=== PATIENT | male | born 1950 | race Caucasian/White ===

== ENCOUNTER 2022-09-07 06:58 | Inpatient (IN) | payer MEDICARE, MEDICAID ==
[~2022-09-07] VITALS: Ht 190.5 cm; Wt 97.5 kg
[2022-09-07] VITALS (36 sets, daily range): BP systolic 95–152; BP diastolic 46–123
[~2022-09-07 06:58] MED LIST: AMIO200T33; AMIODARONE PO; ASPI81CH43; CAR3125T OR; CARV6.25; CARV6.2551; DIGO0.1262; DIGO0.1262 OR; ENAL10TA13; ENALAPRIL PO; FURO1TAB31; FURO40TA4; HYDR-1421; HYDR-2035; PLAVIX; POTA8CAP6; POTA8TAB2 OR; SIMV-8; SIMV20TA2
[2022-09-07] MEDS ORDERED: NITROGLYCERIN 0.4 MG SL TAB SL PRN ×2 (07:30→07:45)
[2022-09-07] MEDS ORDERED: MORPHINE SULFATE INJ 2 MG/ml SYRG IV PRN ×3 (07:30→07:45)
[2022-09-07] MEDS ORDERED: LORazepam 0.5 MG TAB PO PRN (07:45)
[2022-09-07] MEDS ORDERED: ACETAMINOPHEN 325 MG TAB PO PRN (07:45)
[2022-09-07] MEDS ORDERED: HYDROcodone-ACET 5/325MG TAB PO PRN (07:45)
[2022-09-07] MEDS ORDERED: ONDANSETRON HCL 4 MG/2 ML VIAL IV PRN (07:45)
[2022-09-07] MEDS ORDERED: AMIODARONE 450mg/250ml AE 250 ML IV ONE (07:53)
[2022-09-07] MEDS ORDERED: ASPirin 325 MG TAB PO ONE (08:00)
[2022-09-07] MEDS ORDERED: AMIODARONE 450mg/250ml AE 250 ML IV SCH (08:00)
[2022-09-07] MEDS ORDERED: AMIODARONE HCL 150 MG in D5W 5% 100 ML IV ONE (08:00)
[2022-09-07] MEDS ORDERED: HEPARIN DRIP/D5W 100UNITS/ML 250 ML IV SCH (08:00)
[2022-09-07] MEDS ORDERED: HEPARIN DRIP/D5W 100UNITS/ML 250 ML IV ONE (08:43)
[2022-09-07 09:31] LABS: Albumin 3.6 g/dL (3.4-5.0); BUN/Creatinine Ratio 20.4; Magnesium 2.5 mg/dL (1.6-2.6); Potassium 3.8 mmol/L (3.5-5.1)
[2022-09-07 09:36] LABS: INR 1.02 (0.9-1.15); Partial Thromboplastin Time 26.2 sec (24.6-33.4)
[2022-09-07 09:38] LABS: Bilirubin, Total 0.8 mg/dL (0.2-1.0); Total Protein 6.9 g/dL (6.4-8.2)
[2022-09-07] MEDS ORDERED: TRELEGY ELLIPTA 100 MCG INH SCH (10:00)
[2022-09-07 11:01] LABS: Urine Bacteria NONE SEEN /hpf (None Seen); Urine Blood Negative /uL (Negative); Urine Hyaline Cast FEW /lpf (0 - 2); Urine Mucus FEW (None Seen); Urine Specific Gravity 1.027 (1.001-1.035); Urine WBC 28 /hpf (0 - 3)
[2022-09-07 11:16] LABS: Basophils # (auto) 0.1 10 ^3/uL (0-0.2); Basophils % (auto) 1.2 % (0.0-2.0); Eosinophils # (auto) 0 10 ^3/uL (0-0.8); Eosinophils % (auto) 0.2 % (0.0-7.0); Hematocrit 44.7 % (41.0-53.0); Hemoglobin 15.1 g/dL (13.5-17.5); Lymphocytes # (auto) 0.9 10 ^3/uL (0.4-5.4); Mean Corpuscular Hemoglobin 28.2 pg (28.0-32.0); Mean Corpuscular Hgb Conc. 33.8 g/dL (32.0-36.0); Mean Corpuscular Volume 83.5 fL (80.0-100.0); Monocytes # (auto) 0.4 10 ^3/uL (0-1.3); Monocytes % (auto) 5.7 % (0.0-12.0); Neutrophils # (auto) 6.3 10 ^3/uL (1.6-8.6); Neutrophils % (auto) 80.9 % (37.0-80.0); Nucleated Red Blood Cells % 0.1 %; Red Blood Cells 5.35 10^6/uL (4.5-5.90); Red Cell Distribution Width 15.6 % (11.8-14.3); White Blood Cell 7.7 10^3/uL (4.4-10.8)
[2022-09-07 11:27] LABS: Alcohol, Urine < 3.0 mg/dL (0-10); Amphetamine Screen, Urine NEGATIVE (NEGATIVE); Barbiturate Scree,Urine NEGATIVE (NEGATIVE); Benzodiazephine Screen, Urine NEGATIVE (NEGATIVE); Cannabinoid Screen, Urine NEGATIVE (NEGATIVE); Cocaine Screen, Urine NEGATIVE (NEGATIVE); Opiate Scree,Urine NEGATIVE (NEGATIVE); Phencyclidine Screen, Urine NEGATIVE (NEGATIVE)
[2022-09-07 11:27] LABS: Hematocrit 44.4 % (41.0-53.0); Mean Corpuscular Hemoglobin 28.3 pg (28.0-32.0); Mean Corpuscular Hgb Conc. 33.8 g/dL (32.0-36.0); Mean Corpuscular Volume 83.6 fL (80.0-100.0); Red Blood Cells 5.3 10^6/uL (4.5-5.90); Red Cell Distribution Width 15.9 % (11.8-14.3); White Blood Cell 7.5 10^3/uL (4.4-10.8)
[2022-09-07] MEDS: HEPARIN DRIP/D5W 100UNITS/ML 250 ML IV SCH (13:00)
[2022-09-07] MEDS: POTASSIUM CHL 20 Meq TABLET PO SCH (13:58)
[2022-09-07] MEDS: SODIUM CHLOR 0.9% PF (SALINE LOCK) 10ML VIAL/SYR IV SCH ×2 (14:07→21:07)
[2022-09-07] MEDS: AMIODARONE 450mg/250ml AE 250 ML IV SCH (14:30)
[2022-09-07] MEDS ORDERED: FUROSEMIDE 40 MG/4 ML VIAL IV SCH (18:00)
[2022-09-07] MEDS ORDERED: FUROSEMIDE 40 MG TAB PO ONE (18:00)
[2022-09-07] MEDS: ATORVASTATIN 20 MG TAB PO SCH (21:07)
[2022-09-08] VITALS (20 sets, daily range): BP systolic 112–143; BP diastolic 51–78
[2022-09-08] MEDS ORDERED: DOBUTamine 1000MCG/ML 250 ML IV ONE (00:03)
[2022-09-08] MEDS: SODIUM CHLOR 0.9% PF (SALINE LOCK) 10ML VIAL/SYR IV SCH ×3 (06:20→21:09)
[2022-09-08] MEDS: FUROSEMIDE 20 MG TAB PO SCH (06:21)
[2022-09-08] MEDS: AMIODARONE 450mg/250ml AE 250 ML IV SCH ×2 (06:21→21:09)
[2022-09-08 06:46] LABS: Basophils # (auto) 0 10 ^3/uL (0-0.2); Basophils % (auto) 0.7 % (0.0-2.0); Eosinophils # (auto) 0 10 ^3/uL (0-0.8); Eosinophils % (auto) 0.8 % (0.0-7.0); Hematocrit 43.1 % (41.0-53.0); Hemoglobin 14.6 g/dL (13.5-17.5); Lymphocytes # (auto) 1.3 10 ^3/uL (0.4-5.4); Mean Corpuscular Hemoglobin 28.8 pg (28.0-32.0); Mean Corpuscular Volume 84.9 fL (80.0-100.0); Monocytes # (auto) 0.5 10 ^3/uL (0-1.3); Neutrophils # (auto) 4.3 10 ^3/uL (1.6-8.6); Neutrophils % (auto) 69.5 % (37.0-80.0); Nucleated Red Blood Cells % 0.2 %; Red Blood Cells 5.08 10^6/uL (4.5-5.90); Red Cell Distribution Width 15.5 % (11.8-14.3); White Blood Cell 6.2 10^3/uL (4.4-10.8)
[2022-09-08 07:05] LABS: Potassium 3.3 mmol/L (3.5-5.1)
[2022-09-08 07:09] LABS: BUN/Creatinine Ratio 30.2; Calcium 6.2 mg/dL (8.5-10.1); Magnesium 1.9 mg/dL (1.6-2.6)
[2022-09-08] MEDS: TRELEGY ELLIPTA IN SCH (08:59)
[2022-09-08] MEDS: ASPirin 81 mg TAB PO SCH (11:01)
[2022-09-08] MEDS: POTASSIUM CHL 20 Meq TABLET PO SCH (11:02)
[2022-09-08] MEDS: HEPARIN DRIP/D5W 100UNITS/ML 250 ML IV SCH (13:15)
[2022-09-08] MEDS ORDERED: POTASSIUM CHL 20 Meq TABLET PO ONE (15:15)
[2022-09-08] MEDS ORDERED: MAGNESIUM OXIDE 400 MG TAB PO ONE (15:15)
[2022-09-08] MEDS: ATORVASTATIN 20 MG TAB PO SCH (21:09)
[2022-09-09] MEDS ORDERED: CALCIUM CARB 500 MG CHEW TAB PO PRN (02:15)
[2022-09-09 05:14] VITALS: BP 109/82
[2022-09-09] MEDS: SODIUM CHLOR 0.9% PF (SALINE LOCK) 10ML VIAL/SYR IV SCH ×3 (05:44→22:40)
[2022-09-09] MEDS: FUROSEMIDE 20 MG TAB PO SCH ×2 (05:44→20:03)
[2022-09-09 05:49] LABS: Calcium 8.8 mg/dL (8.5-10.1); Potassium 4.3 mmol/L (3.5-5.1)
[2022-09-09 05:53] LABS: BUN/Creatinine Ratio 25.3; Magnesium 2.6 mg/dL (1.6-2.6)
[2022-09-09 06:00] VITALS: BP 114/62
[2022-09-09] MEDS: TRELEGY ELLIPTA IN SCH (10:00)
[2022-09-09] MEDS: ASPirin 81 mg TAB PO SCH (10:16)
[2022-09-09] MEDS: POTASSIUM CHL 20 Meq TABLET PO SCH (10:17)
[2022-09-09] MEDS: AMIODARONE 450mg/250ml AE 250 ML IV SCH (13:00)
[2022-09-09] MEDS: HEPARIN DRIP/D5W 100UNITS/ML 250 ML IV SCH (13:15)
[2022-09-09 22:09] VITALS: BP 110/64
[2022-09-09] MEDS: ATORVASTATIN 20 MG TAB PO SCH (22:38)
[2022-09-10] MEDS: AMIODARONE 450mg/250ml AE 250 ML IV SCH ×2 (02:00→06:29)
[2022-09-10 05:30] VITALS: BP 142/70
[2022-09-10] MEDS: SODIUM CHLOR 0.9% PF (SALINE LOCK) 10ML VIAL/SYR IV SCH ×3 (06:25→21:23)
[2022-09-10] MEDS: FUROSEMIDE 20 MG TAB PO SCH (06:25)
[2022-09-10 09:01] LABS: Basophils # (auto) 0.1 10 ^3/uL (0-0.2); Basophils % (auto) 1.2 % (0.0-2.0); Eosinophils # (auto) 0.1 10 ^3/uL (0-0.8); Eosinophils % (auto) 1.1 % (0.0-7.0); Hematocrit 44.6 % (41.0-53.0); Hemoglobin 14.9 g/dL (13.5-17.5); Lymphocytes # (auto) 1.1 10 ^3/uL (0.4-5.4); Lymphocytes % (auto) 18.3 % (10.0-50.0); Mean Corpuscular Hemoglobin 28.3 pg (28.0-32.0); Mean Corpuscular Hgb Conc. 33.5 g/dL (32.0-36.0); Mean Corpuscular Volume 84.6 fL (80.0-100.0); Monocytes # (auto) 0.5 10 ^3/uL (0-1.3); Monocytes % (auto) 7.5 % (0.0-12.0); Neutrophils # (auto) 4.4 10 ^3/uL (1.6-8.6); Neutrophils % (auto) 71.9 % (37.0-80.0); Nucleated Red Blood Cells % 0.2 %; Red Blood Cells 5.27 10^6/uL (4.5-5.90); Red Cell Distribution Width 15.4 % (11.8-14.3); White Blood Cell 6.1 10^3/uL (4.4-10.8)
[2022-09-10 09:32] LABS: BUN/Creatinine Ratio 18.4; Calcium 8.7 mg/dL (8.5-10.1); Magnesium 2.6 mg/dL (1.6-2.6)
[2022-09-10] MEDS: ASPirin 81 mg TAB PO SCH (11:32)
[2022-09-10] MEDS: POTASSIUM CHL 20 Meq TABLET PO SCH (11:33)
[2022-09-10] MEDS: TRELEGY ELLIPTA IN SCH (11:34)
[2022-09-10] MEDS: FUROSEMIDE 40 MG/4 ML VIAL IV SCH ×2 (11:34→18:21)
[2022-09-10 13:00] VITALS: BP 128/71
[2022-09-10] MEDS: HEPARIN DRIP/D5W 100UNITS/ML 250 ML IV SCH (13:15)
[2022-09-10 17:00] VITALS: BP 122/73
[2022-09-10] MEDS ORDERED: AMIODARONE 450mg/250ml AE 250 ML IV SCH (20:18)
[2022-09-10] MEDS: ATORVASTATIN 20 MG TAB PO SCH (21:20)
[2022-09-10 22:00] VITALS: BP 133/65
[2022-09-11 00:55] LABS: Urine Bacteria FEW /hpf (None Seen); Urine Blood Negative /uL (Negative); Urine WBC 2 /hpf (0 - 3)
[2022-09-11 05:00] VITALS: BP 124/67
[2022-09-11] MEDS: FUROSEMIDE 40 MG/4 ML VIAL IV SCH (05:27)
[2022-09-11] MEDS: SODIUM CHLOR 0.9% PF (SALINE LOCK) 10ML VIAL/SYR IV SCH (05:38)
[2022-09-11 07:31] LABS: Basophils # (auto) 0 10 ^3/uL (0-0.2); Basophils % (auto) 0.6 % (0.0-2.0); Eosinophils # (auto) 0.1 10 ^3/uL (0-0.8); Eosinophils % (auto) 1.8 % (0.0-7.0); Hematocrit 45.1 % (41.0-53.0); Hemoglobin 15.2 g/dL (13.5-17.5); Lymphocytes # (auto) 1.5 10 ^3/uL (0.4-5.4); Lymphocytes % (auto) 22.1 % (10.0-50.0); Mean Corpuscular Hemoglobin 28.4 pg (28.0-32.0); Mean Corpuscular Hgb Conc. 33.8 g/dL (32.0-36.0); Monocytes # (auto) 0.5 10 ^3/uL (0-1.3); Monocytes % (auto) 8.2 % (0.0-12.0); Neutrophils # (auto) 4.4 10 ^3/uL (1.6-8.6); Neutrophils % (auto) 67.3 % (37.0-80.0); Red Blood Cells 5.37 10^6/uL (4.5-5.90); Red Cell Distribution Width 15.4 % (11.8-14.3); White Blood Cell 6.6 10^3/uL (4.4-10.8)
[2022-09-11 07:41] LABS: INR 0.98 (0.9-1.15); Partial Thromboplastin Time 30.4 sec (24.6-33.4)
[2022-09-11] MEDS: TRELEGY ELLIPTA IN SCH (08:40)
[2022-09-11 09:00] VITALS: BP 134/83
[2022-09-11] MEDS ORDERED: ANGIOMAX 250 MG VIAL IV ONE (10:03)
[2022-09-11] MEDS ORDERED: fentaNYL CITRATE 100 MCG/2 ML VL ONE (10:04)
[2022-09-11] MEDS ORDERED: MIDAZOLAM HCL 2MG/2ML 2ml VIAL (1mg/ml) ONE (10:04)
[2022-09-11] MEDS ORDERED: HEPARIN SODIUM (PORCINE) 5000 UNITS/ML 1ML VIAL ONE (10:04)
[2022-09-11] MEDS ORDERED: VERAPAMIL 2.5MG/ML INJ 2ML VIAL IV ONE (10:04)
[2022-09-11] MEDS ORDERED: LIDOCAINE 2%HCL (LOCAL ANESTH.) INJ 10ml MDV ONE (10:05)
[2022-09-11] MEDS ORDERED: IODIXANOL 320MG/ML 100ML BTL IV ONE (10:05)
[2022-09-11] MEDS ORDERED: SODIUM CHL 0.9% 0 ML ONE (10:05)
[2022-09-11] MEDS ORDERED: AMIODARONE HCL 200 MG TAB PO SCH (10:45)
[2022-09-11] MEDS: POTASSIUM CHL 20 Meq TABLET PO SCH (11:04)
[2022-09-11] MEDS: ASPirin 81 mg TAB PO SCH (11:04)
[2022-09-11] MEDS ORDERED: AMIO200T4 PO (11:09)
[2022-09-11] MEDS ORDERED: RIV20T PO (11:09)
[2022-09-11] MEDS ORDERED: LIDOCAINE 2%HCL (LOCAL ANESTH.) INJ 20ML MDV ONE (11:44)
[2022-09-11 12:32] LABS: Hepatitis B Surface Antibody Positive (Negative)
[2022-09-11 12:50] VITALS: BP 115/73
[2022-09-11 15:16] VITALS: BP 115/53
[2022-09-11] MEDS ORDERED: RIVAROXABAN 20 MG TAB PO SCH (18:00)
== END 2022-09-11 16:40 | disposition home health service (06) | DRG 280 ==
LOC: ICU WEST 06:58 → DOU IN ICU 09-09 06:50 → TELE-CENTR 09-09 14:45
PROVIDERS: ADMIT Internal Medicine; ATTEND Internal Medicine
DX: I21.4 Non-ST elevation (NSTEMI) myocardial infarction (principal); I49.01 Ventricular fibrillation; I50.43 Acute on chronic combined systolic (congestive) and diastolic (congestive) heart failure; J96.20 Acute and chronic respiratory failure, unspecified whether with hypoxia or hypercapnia; I47.20 Ventricular tachycardia, unspecified; R57.9 Shock, unspecified; E11.9 Type 2 diabetes mellitus without complications; D69.6 Thrombocytopenia, unspecified; F17.210 Nicotine dependence, cigarettes, uncomplicated; Z20.822 Contact with and (suspected) exposure to COVID-19; G89.29 Other chronic pain; I11.0 Hypertensive heart disease with heart failure; I25.10 Atherosclerotic heart disease of native coronary artery without angina pectoris; J44.9 Chronic obstructive pulmonary disease, unspecified; K43.9 Ventral hernia without obstruction or gangrene; Z79.899 Other long term (current) drug therapy; Z85.828 Personal history of other malignant neoplasm of skin; Z86.73 Personal history of transient ischemic attack (TIA), and cerebral infarction without residual deficits; Z91.14 Patient's other noncompliance with medication regimen; Z95.5 Presence of coronary angioplasty implant and graft; Z88.0 Allergy status to penicillin; Z91.199 Patient's noncompliance with other medical treatment and regimen due to unspecified reason
CPT/HCPCS: 36415; 71045; 76705; 80048; 80053; 80061; 80307; 81001; 83036; 83735; 83880; 84443; 84484; 85025; 85027; 85610; 85730; 86022; 86703; 86704; 86706; 86708; 86803; 86850; 86900; 86901; 87340; 93005; 93306; 96365; 99291; G0378; J2001; J2250; J7060; Q9967